=== PATIENT | female | born 1995 | race Asian ===

== ENCOUNTER 2018-09-07 13:37 | Emergency (ER) | payer MEDICAID ==
[~2018-09-07] VITALS: Ht 162.6 cm; Wt 72.6 kg
[2018-09-07 13:44] VITALS: BP_SYST 105
[2018-09-07 15:37] VITALS: BP_SYST 102
== END 2018-09-07 15:38 | disposition home or self-care (01) ==
LOC: SED 13:37
DX: H10.211 Acute toxic conjunctivitis, right eye (principal)
CPT/HCPCS: 99283